=== PATIENT | female | born 1960 | race Caucasian/White ===

== ENCOUNTER 2020-08-16 13:36 | Inpatient (IN) | payer SELFPAY ==
[2020-08-16] MEDS ORDERED: Lactated Ringer's 1,000 ML IV SCH (15:30)
[2020-08-16] MEDS ORDERED: Bupivacaine 0.25% HCL 30 ML VIAL ONE (16:47)
[2020-08-16] MEDS ORDERED: Lidocaine 1% w/Epinephrine 1:100K 20 ML VIAL ONE (16:47)
[2020-08-16] MEDS ORDERED: Chlorhexidine Gluconate 15 ML UDCUP SSP ONE (16:47)
[2020-08-16 17:01] LABS: SARS-CoV-2 NAA Rapid Test Not Detected (NotDetected)
[2020-08-16] MEDS ORDERED: Fentanyl 100 MCG/2 ML VIAL ONE ×3 (17:42→19:56)
[2020-08-16] MEDS ORDERED: Midazolam HCl 2 mg/2 ml Vial ONE (17:42)
[2020-08-16] MEDS ORDERED: AFRIN NASAL MIST 15 ML BOT ONE (17:47)
[2020-08-16] MEDS ORDERED: PROPOFOL 200 MG/20 ML VIAL ONE (18:00)
[2020-08-16] MEDS ORDERED: Dexamethasone 20 MG/5 ML VIAL ONE (18:00)
[2020-08-16] MEDS ORDERED: Rocuronium Bromide 10 MG/ML (10ML VIAL) ONE (18:00)
[2020-08-16] MEDS ORDERED: Lidocaine 1% PF 5 ML VIAL ONE (18:00)
[2020-08-16] MEDS ORDERED: PHENYLEPHRINE-NS 100 MCG/ML 10 ML SYRINGE ONE (18:00)
[2020-08-16] MEDS ORDERED: Ondansetron PF 4 MG/2 ML Vial ONE (18:00)
[2020-08-16] MEDS ORDERED: Clindamycin/D5W 900 mg/50 ml Premix Bag ONE (18:21)
[2020-08-16] MEDS ORDERED: SUGAMMADEX SODIUM 200 MG/2 ML VIAL ONE (18:56)
[2020-08-16] MEDS ORDERED: Ondansetron HCl/PF 4 MG/2 ML Vial IVP PRN (19:29)
[2020-08-16] MEDS ORDERED: Promethazine HCl 25 MG/ML VIAL SLOW IVP PRN (19:29)
[2020-08-16] MEDS ORDERED: Promethazine HCl 25 MG/ML VIAL IM PRN (19:29)
[2020-08-16] MEDS ORDERED: Chlorhexidine Gluconate 15 ML UDCUP SSP SCH (22:15)
[2020-08-16] MEDS: Lactated Ringer's 1,000 ML IV SCH (22:39)
[2020-08-16 23:46] VITALS: BMI 28.2
[2020-08-17] MEDS: Clindamycin/D5W 600 MG in Premix Bag 1 BAG IVPB SCH ×2 (01:29→09:08)
[2020-08-17] MEDS: Lactated Ringer's 1,000 ML IV SCH ×2 (01:33→09:12)
[2020-08-17] MEDS ORDERED: HYDROcodone/Acetaminophen 5/325 mg Tablet PO PRN ×2 (04:07→04:16)
[2020-08-17] MEDS: HYDROcodone/Acetaminophen 5/325 mg Tablet PO PRN ×2 (04:37→18:10)
[2020-08-17] MEDS ORDERED: HYDROcodone/Acetaminophen 5/325 mg Tablet PO SCH (06:00)
[2020-08-17 06:19] LABS: Mean Corpuscular HGB CONC 32.6 g/dL (32.0-36.0); Mean Corpuscular Hemoglobin 30.7 pg (27.0-31.0); Platelet Count 215 thou/uL (130-400); RBC Distribution Width 12.2 % (11.5-14.5); Red Blood Cell (RBC) Count 4.58 mill/uL (4.20-5.40); White Blood Cell (WBC) Count 33.8 thou/uL (4.8-10.8)
[2020-08-17 06:23] LABS: ALT (SGPT) 35 U/L (8-55); AST (SGOT) 30 U/L (5-34); Albumin 3.1 g/dL (3.5-5.0); Alkaline Phosphatase 98 U/L (40-110); Anion Gap 16 mmol/L (10-20); BUN (Urea Nitrogen) 39 mg/dL (9.8-20.1); Bilirubin, Total 0.5 mg/dL (0.2-1.2); Calc. Creatinine Clearance 38 mL/min (70-130); Calcium 8.4 mg/dL (7.8-10.44); Carbon Dioxide 20 mmol/L (22-29); Chloride 106 mmol/L (98-107); Glucose 109 mg/dL (70-105); Potassium 4.4 mmol/L (3.5-5.1); Protein, Total 7.1 g/dL (6.0-8.3); Sodium 138 mmol/L (136-145)
[2020-08-17 06:43] LABS: Band 25 % (5-11); Lymphocytes 7 % (21-51); MDiff Complete? YES; Monocytes 8 % (0-10); Neutrophil 59 % (42-75)
[2020-08-17] MEDS ORDERED: Chlorhexidine Gluconate 15 ML UDCUP SSP SCH (09:00)
[2020-08-17 16:11] VITALS: BP 116/64; TEMP 98.2
== END 2020-08-17 18:24 | disposition home or self-care (01) | DRG 854 ==
LOC: ERS 13:36 → ERHOLD 14:54 → SJJU 21:53
PROVIDERS: ADMIT Family Medicine; ATTEND Family Medicine
PROC: 0J910ZZ Drainage of Face Subcutaneous Tissue and Fascia, Open Approach (ICD-10-PCS; principal; 2020-08-16)
PROC: 0CDXXZ0 Extraction of Lower Tooth, Single, External Approach (ICD-10-PCS; 2020-08-16)
DX: A41.9 Sepsis, unspecified organism (principal); K11.3 Abscess of salivary gland; N17.9 Acute kidney failure, unspecified; E86.0 Dehydration; R74.01 Elevation of levels of liver transaminase levels; K04.7 Periapical abscess without sinus; N18.9 Chronic kidney disease, unspecified; F17.210 Nicotine dependence, cigarettes, uncomplicated; D75.1 Secondary polycythemia; Z20.822 Contact with and (suspected) exposure to COVID-19; Z88.2 Allergy status to sulfonamides; Z88.1 Allergy status to other antibiotic agents
CPT/HCPCS: 36415; 80053; 84145; 85025; 87070; 87077; 87205; 99285; J1100; J2250; J2405; J2704; J3010; J3490; S0020; U0002

== ENCOUNTER 2020-08-22 12:38 | Inpatient (IN) | payer SELFPAY ==
[2020-08-22] MEDS ORDERED: Fentanyl 100 MCG/2 ML VIAL ONE ×3 (13:42→19:29)
[2020-08-22 13:53] LABS: Actual Bicarbonate (HCO3a) 16.4 mEq/L (22-28); Analyzer IN Cardio ER; Base Excess (BEa) -8.6 mEq/L (-2.0 to +3.0); CO2 Tension 32.9 mmHg (35.0-45.0); Carboxyhemoglobin (COHb) 1.2 gm% (0.0-3.0); O2 Tension (PaO2), arterial 61.5 mmHg (80.0-100.0); Potassium - ABG Lab 3.91 mmol/L (3.70-5.30); pH, Arterial 7.32 (7.35-7.45)
[2020-08-22 14:07] LABS: ALV-art Gradient 47.105 mmHg (0-20); Puncture Site LRA
[2020-08-22 14:56] LABS: SARS-CoV-2 NAA Rapid Test Not Detected (NotDetected)
[2020-08-22 15:12] LABS: INR-International Normal Ratio 1.2; PTT 27.1 sec (22.9-36.1); Prothrombin Time 15.3 sec (12.0-14.7)
[2020-08-22] MEDS ORDERED: Midazolam HCl 2 mg/2 ml Vial ONE (16:18)
[2020-08-22] MEDS ORDERED: Lidocaine 2% Jelly 5 ML TUBE ONE (16:18)
[2020-08-22] MEDS ORDERED: Fentanyl 250 MCG/5 ML VIAL ONE (16:18)
[2020-08-22] MEDS ORDERED: ePHEDrine Sulfate 50 MG/10 ML VIAL ONE (17:01)
[2020-08-22] MEDS ORDERED: Lidocaine 1% PF 5 ML VIAL ONE (17:01)
[2020-08-22] MEDS ORDERED: PROPOFOL 200 MG/20 ML VIAL ONE (17:01)
[2020-08-22] MEDS ORDERED: PHENYLEPHRINE-NS 100 MCG/ML 10 ML SYRINGE ONE (17:01)
[2020-08-22] MEDS ORDERED: Rocuronium Bromide 10 MG/ML (10ML VIAL) ONE (17:01)
[2020-08-22] MEDS ORDERED: Succinylcholine 200 MG/10 ml SYRINGE FS ONE (17:01)
[2020-08-22] MEDS ORDERED: Dextrose 5% in Water 1,000 ML IV PRN (17:16)
[2020-08-22] MEDS ORDERED: Dextrose 50% Abboject 50 ML SYRINGE SLOW IVP PRN (17:16)
[2020-08-22] MEDS ORDERED: Piperacillin/Tazobactam 3.375 GM VIAL ONE (17:18)
[2020-08-22] MEDS ORDERED: diphenhydrAMINE 25 MG CAP PO PRN (17:19)
[2020-08-22] MEDS ORDERED: Ondansetron PF 4 MG/2 ML Vial IVP PRN (17:19)
[2020-08-22] MEDS ORDERED: diphenhydrAMINE 50 MG/ML VIAL IM PRN (17:19)
[2020-08-22] MEDS ORDERED: Naloxone HCl 0.4 mg/ml Vial IV PRN (17:19)
[2020-08-22] MEDS ORDERED: diphenhydrAMINE 50 MG/ML VIAL IVP PRN (17:19)
[2020-08-22] MEDS ORDERED: Promethazine HCl 25 MG/ML VIAL IM PRN ×2 (17:19→19:27)
[2020-08-22] MEDS ORDERED: Sodium Chloride 0.9% 10 ML ONE (17:19)
[2020-08-22] MEDS ORDERED: Communication Order-Pharmacy FS SCH (17:30)
[2020-08-22] MEDS ORDERED: Phenylephrine 10 MG/ML VIAL ONE (17:40)
[2020-08-22] MEDS ORDERED: SUGAMMADEX SODIUM 500 MG/5 ML VIAL ONE (18:52)
[2020-08-22] MEDS ORDERED: Ondansetron HCl/PF 4 MG/2 ML Vial IVP PRN (19:27)
[2020-08-22] MEDS ORDERED: Promethazine HCl 25 MG/ML VIAL SLOW IVP PRN (19:27)
[2020-08-22 22:56] VITALS: BMI 26.5
[2020-08-22] MEDS: Piperacillin/Tazobactam 3.375 GM in Sodium Chloride 0.9% 100 ML IVPB SCH (23:07)
[2020-08-22] MEDS: Pantoprazole 40 MG VIAL IVP SCH (23:08)
[2020-08-22] MEDS: Sodium Chloride 0.9% 1,000 ML IV SCH (23:10)
[2020-08-23] MEDS: Sodium Chloride 0.9% 1,000 ML IV SCH (04:52)
[2020-08-23] MEDS: Piperacillin/Tazobactam 3.375 GM in Sodium Chloride 0.9% 100 ML IVPB SCH ×4 (04:52→23:57)
[2020-08-23 05:32] LABS: Hemoglobin 15.2 g/dL (12.0-16.0); Mean Corpuscular HGB CONC 32.6 g/dL (32.0-36.0); Mean Corpuscular Hemoglobin 30.9 pg (27.0-31.0); Mean Corpuscular Volume 94.8 fL (78.0-98.0); Mean Platelet Volume 7.3 fL (7.4-10.4); Platelet Count 271 thou/uL (130-400); RBC Distribution Width 12.4 % (11.5-14.5); White Blood Cell (WBC) Count 50.3 thou/uL (4.8-10.8)
[2020-08-23 05:45] LABS: Band 23 % (5-11); Lymphocytes 3 % (21-51); MDiff Complete? YES; Monocytes 3 % (0-10); Neutrophil 71 % (42-75); Platelet Morphology Comment Appears Adequate; RBC Morphology Normal
[2020-08-23 05:53] LABS: Anion Gap 17 mmol/L (10-20); BUN (Urea Nitrogen) 38 mg/dL (9.8-20.1); Calc. Creatinine Clearance 25 mL/min (70-130); Calcium 7.9 mg/dL (7.8-10.44); Carbon Dioxide 16 mmol/L (22-29); Chloride 110 mmol/L (98-107); Glucose 91 mg/dL (70-105); Potassium 4.6 mmol/L (3.5-5.1); Sodium 138 mmol/L (136-145)
[2020-08-23] MEDS ORDERED: Sodium Chloride 0.9% 500 ML IV SCH (06:00)
[2020-08-23] MEDS ORDERED: Sodium Bicarbonate 150 MEQ in Dextrose 5% in Water 1,000 ML IV SCH ×2 (08:00→10:45)
[2020-08-23] MEDS: Pantoprazole 40 MG VIAL IVP SCH ×2 (08:40→19:55)
[2020-08-23] MEDS ORDERED: Enoxaparin Sodium 40 MG/0.4 ML SYRINGE SC SCH (09:00)
[2020-08-23] MEDS ORDERED: Chloraseptic Spray 180 ml Bottle PO PRN (09:01)
[2020-08-23] MEDS ORDERED: Sodium Chloride 0.9% 1,000 ML IV SCH (09:15)
[2020-08-23] MEDS ORDERED: Chlorhexidine Gluconate 15 ML UDCUP SSP PRN (17:21)
[2020-08-23] MEDS: HYDROmorphone 10 mg/100 ml CADD IVPB PRN (21:01)
[2020-08-24 05:44] LABS: Hemoglobin 11.3 g/dL (12.0-16.0); Lymphocytes 5 % (21-51); MDiff Complete? YES; Mean Corpuscular HGB CONC 32.6 g/dL (32.0-36.0); Mean Corpuscular Hemoglobin 30.6 pg (27.0-31.0); Mean Corpuscular Volume 93.7 fL (78.0-98.0); Mean Platelet Volume 7.8 fL (7.4-10.4); Monocytes 9 % (0-10); Neutrophil 86 % (42-75); Platelet Count 217 thou/uL (130-400); Platelet Morphology Comment Appears Adequate; RBC Distribution Width 12.3 % (11.5-14.5); Red Blood Cell (RBC) Count 3.69 mill/uL (4.20-5.40); White Blood Cell (WBC) Count 35.6 thou/uL (4.8-10.8)
[2020-08-24 05:53] LABS: ALT (SGPT) 62 U/L (8-55); AST (SGOT) 93 U/L (5-34); Albumin 2.2 g/dL (3.5-5.0); Alkaline Phosphatase 59 U/L (40-110); Anion Gap 12 mmol/L (10-20); BUN (Urea Nitrogen) 41 mg/dL (9.8-20.1); Bilirubin, Total 0.8 mg/dL (0.2-1.2); Calc. Creatinine Clearance 28 mL/min (70-130); Calcium 7.9 mg/dL (7.8-10.44); Carbon Dioxide 22 mmol/L (22-29); Chloride 109 mmol/L (98-107); Globulin 3.3 g/dL (2.4-3.5); Glucose 89 mg/dL (70-105); Potassium 4.6 mmol/L (3.5-5.1); Protein, Total 5.5 g/dL (6.0-8.3); Sodium 138 mmol/L (136-145)
[2020-08-24] MEDS: Piperacillin/Tazobactam 3.375 GM in Sodium Chloride 0.9% 100 ML IVPB SCH ×3 (06:09→18:31)
[2020-08-24] MEDS: Enoxaparin Sodium 30 MG/0.3 ML SYRINGE SC SCH (09:22)
[2020-08-24] MEDS: Pantoprazole 40 MG VIAL IVP SCH ×2 (09:22→20:39)
[2020-08-24] MEDS: Sodium Bicarbonate 150 MEQ in Dextrose 5% in Water 850 ML IV SCH ×2 (09:24→20:41)
[2020-08-24 18:37] LABS: H. pylori IgA ABS Less than 9.0 units (0.0-8.9); H. pylori IgG ABS 0.61 (0.00-0.79); H. pylori IgM ABS Less than 9.0 units (0.0-8.9)
[2020-08-25] MEDS: Piperacillin/Tazobactam 3.375 GM in Sodium Chloride 0.9% 100 ML IVPB SCH ×4 (00:08→17:51)
[2020-08-25] MEDS: HYDROmorphone 10 mg/100 ml CADD IVPB PRN (00:11)
[2020-08-25 06:01] LABS: #Basophils 0.1 thou/uL (0.0-0.2); #Eosinphils 0.2 thou/uL (0.0-0.7); #Lymphocytes 3.1 thou/uL (1.20-3.40); #Monocytes 1.5 thou/uL (0.11-0.59); #Neutrophils 17.5 thou/uL (1.40-6.50); %Basophils 0.4 % (0.0-1.0); %Lymphocytes 13.9 % (21.0-51.0); %Monocytes 6.9 % (0.0-10.0); %Neutrophils 77.9 % (42.0-75.0); Hemoglobin 12.5 g/dL (12.0-16.0); Mean Corpuscular HGB CONC 31.6 g/dL (32.0-36.0); Mean Corpuscular Hemoglobin 29.7 pg (27.0-31.0); Mean Corpuscular Volume 94.1 fL (78.0-98.0); Mean Platelet Volume 7.6 fL (7.4-10.4); Platelet Count 177 thou/uL (130-400); RBC Distribution Width 12.1 % (11.5-14.5); Red Blood Cell (RBC) Count 4.19 mill/uL (4.20-5.40); White Blood Cell (WBC) Count 22.5 thou/uL (4.8-10.8)
[2020-08-25] MEDS: Sodium Bicarbonate 150 MEQ in Dextrose 5% in Water 850 ML IV SCH (06:15)
[2020-08-25 06:23] LABS: Anion Gap 14 mmol/L (10-20); BUN (Urea Nitrogen) 31 mg/dL (9.8-20.1); Calc. Creatinine Clearance 42 mL/min (70-130); Calcium 7.9 mg/dL (7.8-10.44); Carbon Dioxide 28 mmol/L (22-29); Chloride 102 mmol/L (98-107); Glucose 78 mg/dL (70-105); Magnesium 1.9 mg/dL (1.6-2.6); Phosphorus 2.9 mg/dL (2.3-4.7); Potassium 3.5 mmol/L (3.5-5.1); Sodium 140 mmol/L (136-145)
[2020-08-25] MEDS: Pantoprazole 40 MG VIAL IVP SCH ×2 (08:46→20:36)
[2020-08-25] MEDS: Enoxaparin Sodium 30 MG/0.3 ML SYRINGE SC SCH (08:46)
[2020-08-25] MEDS: Enoxaparin Sodium 40 MG/0.4 ML SYRINGE SC SCH (09:02)
[2020-08-25] MEDS: Hydrocodone-Acetamin 15 ML UDCUP PO PRN (17:53)
[2020-08-25] MEDS ORDERED: Magnesium 2 GM/50 ML 2 GM in Premix Bag 1 BAG IVPB SCH (19:30)
[2020-08-25] MEDS: Lactated Ringer's 1,000 ML IV SCH (22:20)
[2020-08-26] MEDS: Hydrocodone-Acetamin 15 ML UDCUP PO PRN ×4 (00:25→17:14)
[2020-08-26] MEDS: Piperacillin/Tazobactam 3.375 GM in Sodium Chloride 0.9% 100 ML IVPB SCH ×4 (00:47→17:11)
[2020-08-26 04:58] LABS: #Eosinphils 0.3 thou/uL (0.0-0.7); #Lymphocytes 2.7 thou/uL (1.20-3.40); #Monocytes 1.5 thou/uL (0.11-0.59); #Neutrophils 11.6 thou/uL (1.40-6.50); %Basophils 0.3 % (0.0-1.0); %Eosinophils 2.1 % (0.0-10.0); %Lymphocytes 16.7 % (21.0-51.0); %Monocytes 9.3 % (0.0-10.0); %Neutrophils 71.7 % (42.0-75.0); Hemoglobin 11.3 g/dL (12.0-16.0); Mean Corpuscular HGB CONC 31.7 g/dL (32.0-36.0); Mean Corpuscular Hemoglobin 29.7 pg (27.0-31.0); Mean Corpuscular Volume 93.8 fL (78.0-98.0); Mean Platelet Volume 7.1 fL (7.4-10.4); Platelet Count 234 thou/uL (130-400); RBC Distribution Width 11.9 % (11.5-14.5); Red Blood Cell (RBC) Count 3.79 mill/uL (4.20-5.40); White Blood Cell (WBC) Count 16.2 thou/uL (4.8-10.8)
[2020-08-26 05:21] LABS: Anion Gap 9 mmol/L (10-20); BUN (Urea Nitrogen) 24 mg/dL (9.8-20.1); Calc. Creatinine Clearance 49 mL/min (70-130); Calcium 8.1 mg/dL (7.8-10.44); Carbon Dioxide 34 mmol/L (22-29); Chloride 100 mmol/L (98-107); Glucose 99 mg/dL (70-105); Magnesium 2.3 mg/dL (1.6-2.6); Phosphorus 2.9 mg/dL (2.3-4.7); Potassium 3.6 mmol/L (3.5-5.1); Sodium 139 mmol/L (136-145)
[2020-08-26] MEDS: Lactated Ringer's 1,000 ML IV SCH (05:34)
[2020-08-26] MEDS ORDERED: Furosemide 20 MG/2 ML VIAL SLOW IVP SCH (08:45)
[2020-08-26] MEDS: Enoxaparin Sodium 40 MG/0.4 ML SYRINGE SC SCH (09:53)
[2020-08-26] MEDS: Pantoprazole 40 MG VIAL IVP SCH ×2 (09:54→21:31)
[2020-08-27] MEDS: Piperacillin/Tazobactam 3.375 GM in Sodium Chloride 0.9% 100 ML IVPB SCH ×5 (00:10→23:52)
[2020-08-27] MEDS: Hydrocodone-Acetamin 15 ML UDCUP PO PRN ×4 (01:21→20:06)
[2020-08-27 05:28] LABS: #Eosinphils 0.3 thou/uL (0.0-0.7); #Lymphocytes 2.3 thou/uL (1.20-3.40); #Monocytes 1.8 thou/uL (0.11-0.59); #Neutrophils 11.5 thou/uL (1.40-6.50); %Basophils 0.1 % (0.0-1.0); %Eosinophils 1.7 % (0.0-10.0); %Lymphocytes 14.8 % (21.0-51.0); %Monocytes 11.3 % (0.0-10.0); %Neutrophils 72.1 % (42.0-75.0); Hemoglobin 11.7 g/dL (12.0-16.0); Mean Corpuscular HGB CONC 32.3 g/dL (32.0-36.0); Mean Corpuscular Hemoglobin 30.3 pg (27.0-31.0); Mean Corpuscular Volume 93.7 fL (78.0-98.0); Mean Platelet Volume 7.1 fL (7.4-10.4); Platelet Count 233 thou/uL (130-400); RBC Distribution Width 11.9 % (11.5-14.5); Red Blood Cell (RBC) Count 3.85 mill/uL (4.20-5.40); White Blood Cell (WBC) Count 15.9 thou/uL (4.8-10.8)
[2020-08-27 05:44] LABS: Anion Gap 10 mmol/L (10-20); BUN (Urea Nitrogen) 18 mg/dL (9.8-20.1); Calc. Creatinine Clearance 55 mL/min (70-130); Calcium 8.2 mg/dL (7.8-10.44); Carbon Dioxide 32 mmol/L (22-29); Chloride 102 mmol/L (98-107); Glucose 103 mg/dL (70-105); Potassium 3.6 mmol/L (3.5-5.1); Sodium 140 mmol/L (136-145)
[2020-08-27] MEDS: Enoxaparin Sodium 40 MG/0.4 ML SYRINGE SC SCH (08:05)
[2020-08-27] MEDS: Pantoprazole 40 MG VIAL IVP SCH ×2 (08:06→20:05)
[2020-08-28] MEDS: Hydrocodone-Acetamin 15 ML UDCUP PO PRN ×3 (04:21→12:41)
[2020-08-28 05:39] LABS: #Basophils 0.1 thou/uL (0.0-0.2); #Eosinphils 0.3 thou/uL (0.0-0.7); #Monocytes 1.6 thou/uL (0.11-0.59); #Neutrophils 9.2 thou/uL (1.40-6.50); %Basophils 0.4 % (0.0-1.0); %Eosinophils 1.9 % (0.0-10.0); %Lymphocytes 15.2 % (21.0-51.0); %Monocytes 12.3 % (0.0-10.0); %Neutrophils 70.2 % (42.0-75.0); Hemoglobin 10.7 g/dL (12.0-16.0); Mean Corpuscular HGB CONC 32.9 g/dL (32.0-36.0); Mean Corpuscular Hemoglobin 30.9 pg (27.0-31.0); Mean Corpuscular Volume 93.8 fL (78.0-98.0); Mean Platelet Volume 7.2 fL (7.4-10.4); Platelet Count 242 thou/uL (130-400); RBC Distribution Width 11.9 % (11.5-14.5); Red Blood Cell (RBC) Count 3.48 mill/uL (4.20-5.40); White Blood Cell (WBC) Count 13.2 thou/uL (4.8-10.8)
[2020-08-28 06:00] LABS: Anion Gap 10 mmol/L (10-20); BUN (Urea Nitrogen) 15 mg/dL (9.8-20.1); Calc. Creatinine Clearance 62 mL/min (70-130); Calcium 7.9 mg/dL (7.8-10.44); Carbon Dioxide 27 mmol/L (22-29); Chloride 104 mmol/L (98-107); Glucose 94 mg/dL (70-105); Magnesium 1.6 mg/dL (1.6-2.6); Phosphorus 2.7 mg/dL (2.3-4.7); Potassium 3.6 mmol/L (3.5-5.1); Sodium 137 mmol/L (136-145)
[2020-08-28] MEDS: Piperacillin/Tazobactam 3.375 GM in Sodium Chloride 0.9% 100 ML IVPB SCH (06:11)
[2020-08-28] MEDS ORDERED: Magnesium 2 GM/50 ML 2 GM in Premix Bag 1 BAG IVPB SCH (08:00)
[2020-08-28] MEDS: Enoxaparin Sodium 40 MG/0.4 ML SYRINGE SC SCH (08:54)
[2020-08-28] MEDS: Pantoprazole 40 MG VIAL IVP SCH ×2 (08:54→21:04)
[2020-08-28] MEDS: Furosemide 20 MG/2 ML VIAL SLOW IVP SCH ×5 (10:48→21:04)
[2020-08-28] MEDS ORDERED: Fentanyl 250 MCG/5 ML VIAL ONE (15:40)
[2020-08-28] MEDS ORDERED: Lidocaine 1% PF 5 ML VIAL ONE (16:11)
[2020-08-28] MEDS ORDERED: Dexamethasone 20 MG/5 ML VIAL ONE (16:11)
[2020-08-28] MEDS ORDERED: Ondansetron PF 4 MG/2 ML Vial ONE (16:11)
[2020-08-28] MEDS ORDERED: Rocuronium Bromide 10 MG/ML (10ML VIAL) ONE (16:11)
[2020-08-28] MEDS ORDERED: ePHEDrine Sulfate 50 MG/10 ML VIAL ONE (16:11)
[2020-08-28] MEDS ORDERED: PHENYLEPHRINE-NS 100 MCG/ML 10 ML SYRINGE ONE (16:11)
[2020-08-28] MEDS ORDERED: PROPOFOL 200 MG/20 ML VIAL ONE (16:11)
[2020-08-28] MEDS ORDERED: Lidocaine 1% w/Epinephrine 1:100K 20 ML VIAL ONE (16:30)
[2020-08-28] MEDS ORDERED: Bupivacaine 0.25% HCL 30 ML VIAL ONE (16:30)
[2020-08-28] MEDS ORDERED: Bupivacaine PF 0.5% 30 ML VIAL ONE (16:30)
[2020-08-28] MEDS ORDERED: SUGAMMADEX SODIUM 500 MG/5 ML VIAL ONE (16:49)
[2020-08-28] MEDS ORDERED: Promethazine HCl 25 MG/ML VIAL SLOW IVP PRN (17:22)
[2020-08-28] MEDS ORDERED: Promethazine HCl 25 MG/ML VIAL IM PRN (17:22)
[2020-08-28] MEDS ORDERED: Ondansetron HCl/PF 4 MG/2 ML Vial IVP PRN (17:22)
[2020-08-28] MEDS ORDERED: traMADol HCl 50 MG TAB PO SCH (23:15)
[2020-08-29 07:32] LABS: Band 4 % (5-11); Eosinophils 3 % (0-10); Lymphocytes 21 % (21-51); Monocytes 7 % (0-10); Reactive Lymphocytes 1 % (0-10)
[2020-08-29 07:33] LABS: Neutrophil 63 % (42-75); Platelet Morphology Comment Appears Adequate; Polychromasia SLIGHT = 2-3 cells (100X) (0-2/hpf)
[2020-08-29] MEDS: Gabapentin 300 MG CAP PO SCH ×3 (08:32→20:29)
[2020-08-29] MEDS: Enoxaparin Sodium 40 MG/0.4 ML SYRINGE SC SCH (08:32)
[2020-08-29] MEDS: Pantoprazole 40 MG VIAL IVP SCH ×2 (08:32→20:31)
[2020-08-29] MEDS: Cyclobenzaprine 10 MG TAB PO PRN (17:40)
[2020-08-30] MEDS: Cyclobenzaprine 10 MG TAB PO PRN (01:36)
[2020-08-30] MEDS: Enoxaparin Sodium 40 MG/0.4 ML SYRINGE SC SCH (09:00)
[2020-08-30] MEDS: Gabapentin 300 MG CAP PO SCH ×3 (09:01→22:26)
[2020-08-30] MEDS: Pantoprazole 40 MG VIAL IVP SCH ×2 (09:01→22:26)
[2020-08-30] MEDS ORDERED: Fentanyl 100 MCG/2 ML VIAL ONE ×4 (12:33→20:14)
[2020-08-30] MEDS ORDERED: PHENYLEPHRINE-NS 100 MCG/ML 10 ML SYRINGE ONE ×2 (15:03→18:47)
[2020-08-30] MEDS ORDERED: Phenylephrine 10 MG/ML VIAL ONE (15:03)
[2020-08-30] MEDS ORDERED: CEFAZOLIN 2 GM in Premix Bag 1 BAG IVPB SCH (17:15)
[2020-08-30] MEDS ORDERED: Rocuronium Bromide 10 MG/ML (10ML VIAL) ONE (18:47)
[2020-08-30] MEDS ORDERED: Dexamethasone 20 MG/5 ML VIAL ONE (18:47)
[2020-08-30] MEDS ORDERED: PROPOFOL 200 MG/20 ML VIAL ONE (18:47)
[2020-08-30] MEDS ORDERED: ePHEDrine Sulfate 50 MG/10 ML VIAL ONE (18:47)
[2020-08-30] MEDS ORDERED: Ondansetron PF 4 MG/2 ML Vial ONE (18:47)
[2020-08-30] MEDS ORDERED: Lidocaine 1% w/Epinephrine 1:100K 20 ML VIAL ONE (18:49)
[2020-08-30] MEDS ORDERED: Bupivacaine 0.25% HCL 30 ML VIAL ONE (18:49)
[2020-08-30] MEDS ORDERED: SUGAMMADEX SODIUM 500 MG/5 ML VIAL ONE (19:47)
[2020-08-30] MEDS ORDERED: Naloxone HCl 0.4 mg/ml Vial IV PRN (20:04)
[2020-08-30] MEDS ORDERED: HYDROmorphone 10 mg/100 ml CADD IVPB PRN (20:04)
[2020-08-30] MEDS ORDERED: Communication Order-Pharmacy FS SCH (20:15)
[2020-08-30] MEDS ORDERED: Promethazine HCl 25 MG/ML VIAL SLOW IVP PRN (20:17)
[2020-08-30] MEDS ORDERED: Promethazine HCl 25 MG/ML VIAL IM PRN (20:17)
[2020-08-30] MEDS ORDERED: Ondansetron HCl/PF 4 MG/2 ML Vial IVP PRN (20:17)
[2020-08-30] MEDS ORDERED: HYDROmorphone 2 MG/ML VIAL SLOW IVP PRN (20:17)
[2020-08-30] MEDS ORDERED: Morphine Sulfate 2 MG/ML SYRINGE SLOW IVP PRN (20:17)
[2020-08-30] MEDS ORDERED: HYDROmorphone 2 MG/ML VIAL ONE (20:35)
[2020-08-31 05:19] LABS: #Basophils 0.1 thou/uL (0.0-0.2); #Lymphocytes 1.4 thou/uL (1.20-3.40); #Monocytes 0.7 thou/uL (0.11-0.59); #Neutrophils 10.2 thou/uL (1.40-6.50); %Basophils 0.4 % (0.0-1.0); %Eosinophils 0.1 % (0.0-10.0); %Monocytes 5.3 % (0.0-10.0); %Neutrophils 83.1 % (42.0-75.0); Hemoglobin 11.4 g/dL (12.0-16.0); Mean Corpuscular Hemoglobin 31.1 pg (27.0-31.0); Mean Corpuscular Volume 97.2 fL (78.0-98.0); Mean Platelet Volume 7.1 fL (7.4-10.4); Platelet Count 312 thou/uL (130-400); RBC Distribution Width 12.4 % (11.5-14.5); Red Blood Cell (RBC) Count 3.65 mill/uL (4.20-5.40); White Blood Cell (WBC) Count 12.3 thou/uL (4.8-10.8)
[2020-08-31 05:44] LABS: Anion Gap 12 mmol/L (10-20); BUN (Urea Nitrogen) 16 mg/dL (9.8-20.1); Calc. Creatinine Clearance 72 mL/min (70-130); Calcium 7.9 mg/dL (7.8-10.44); Carbon Dioxide 27 mmol/L (22-29); Chloride 103 mmol/L (98-107); Glucose 132 mg/dL (70-105); Magnesium 1.6 mg/dL (1.6-2.6); Phosphorus 3.3 mg/dL (2.3-4.7); Potassium 4.7 mmol/L (3.5-5.1); Sodium 137 mmol/L (136-145)
[2020-08-31] MEDS ORDERED: traMADol HCl 50 MG TAB PO PRN (08:00)
[2020-08-31] MEDS: Enoxaparin Sodium 40 MG/0.4 ML SYRINGE SC SCH (09:07)
[2020-08-31] MEDS: Pantoprazole 40 MG VIAL IVP SCH ×2 (09:08→20:30)
[2020-08-31] MEDS: Gabapentin 300 MG CAP PO SCH ×3 (09:08→20:29)
[2020-08-31] MEDS: traMADol HCl 50 MG TAB PO SCH ×3 (09:31→20:29)
[2020-08-31] MEDS: Acetaminophen 325 MG TAB PO SCH ×3 (09:31→20:28)
[2020-09-01] MEDS: traMADol HCl 50 MG TAB PO SCH ×4 (01:02→17:26)
[2020-09-01] MEDS: Acetaminophen 325 MG TAB PO SCH ×4 (01:02→19:26)
[2020-09-01] MEDS: Enoxaparin Sodium 40 MG/0.4 ML SYRINGE SC SCH (08:16)
[2020-09-01] MEDS: Gabapentin 300 MG CAP PO SCH ×3 (08:16→19:27)
[2020-09-01] MEDS: Pantoprazole 40 MG VIAL IVP SCH (08:17)
[2020-09-02] MEDS: traMADol HCl 50 MG TAB PO SCH ×4 (01:00→18:53)
[2020-09-02] MEDS: Acetaminophen 325 MG TAB PO SCH ×4 (01:01→20:42)
[2020-09-02] MEDS: Enoxaparin Sodium 40 MG/0.4 ML SYRINGE SC SCH (09:36)
[2020-09-02] MEDS: Gabapentin 300 MG CAP PO SCH ×3 (09:37→20:42)
[2020-09-03] MEDS: traMADol HCl 50 MG TAB PO SCH ×4 (01:04→18:43)
[2020-09-03] MEDS: Acetaminophen 325 MG TAB PO SCH ×4 (01:04→19:54)
[2020-09-03 05:55] LABS: Hemoglobin 9.6 g/dL (12.0-16.0); Mean Corpuscular HGB CONC 32.1 g/dL (32.0-36.0); Mean Corpuscular Hemoglobin 30.7 pg (27.0-31.0); Mean Corpuscular Volume 95.9 fL (78.0-98.0); Platelet Count 277 thou/uL (130-400); RBC Distribution Width 12.2 % (11.5-14.5); Red Blood Cell (RBC) Count 3.12 mill/uL (4.20-5.40); White Blood Cell (WBC) Count 13.6 thou/uL (4.8-10.8)
[2020-09-03 06:06] LABS: Anion Gap 10 mmol/L (10-20); BUN (Urea Nitrogen) 16 mg/dL (9.8-20.1); Calc. Creatinine Clearance 68 mL/min (70-130); Calcium 7.6 mg/dL (7.8-10.44); Carbon Dioxide 27 mmol/L (22-29); Chloride 105 mmol/L (98-107); Glucose 98 mg/dL (70-105); Magnesium 1.5 mg/dL (1.6-2.6); Phosphorus 2.6 mg/dL (2.3-4.7); Potassium 4.5 mmol/L (3.5-5.1); Sodium 137 mmol/L (136-145)
[2020-09-03 06:16] LABS: Band 3 % (5-11); Hypochromia SLIGHT = 6-15 cells (100X) (0-5/hpf); Lymphocytes 10 % (21-51); MDiff Complete? YES; Monocytes 9 % (0-10); Neutrophil 74 % (42-75); Platelet Morphology Comment Appears Adequate; Reactive Lymphocytes 4 % (0-10)
[2020-09-03] MEDS: Gabapentin 300 MG CAP PO SCH ×3 (08:14→19:54)
[2020-09-03] MEDS: Enoxaparin Sodium 40 MG/0.4 ML SYRINGE SC SCH (08:15)
[2020-09-03] MEDS ORDERED: Furosemide 20 MG/2 ML VIAL SLOW IVP SCH (10:45)
[2020-09-03] MEDS ORDERED: Sodium Phosphate 30 MMOL, Magnesium Sulfate 4 GM in Sodium Chloride 0.9% 250 ML 250 ML IVPB SCH (11:00)
[2020-09-04] MEDS: Acetaminophen 325 MG TAB PO SCH ×2 (00:37→08:09)
[2020-09-04] MEDS: traMADol HCl 50 MG TAB PO SCH ×3 (00:38→11:34)
[2020-09-04 05:41] LABS: Eosinophils 2 % (0-10); Hemoglobin 10.8 g/dL (12.0-16.0); Lymphocytes 16 % (21-51); MDiff Complete? YES; Mean Corpuscular HGB CONC 31.8 g/dL (32.0-36.0); Mean Corpuscular Hemoglobin 30.3 pg (27.0-31.0); Mean Corpuscular Volume 95.5 fL (78.0-98.0); Metamyelocyte 1 % (0-0); Monocytes 2 % (0-10); Neutrophil 79 % (42-75); Platelet Count 333 thou/uL (130-400); Platelet Morphology Comment Appears Adequate; RBC Distribution Width 12.1 % (11.5-14.5); Red Blood Cell (RBC) Count 3.56 mill/uL (4.20-5.40); White Blood Cell (WBC) Count 14.5 thou/uL (4.8-10.8)
[2020-09-04 05:45] LABS: Anion Gap 10 mmol/L (10-20); BUN (Urea Nitrogen) 15 mg/dL (9.8-20.1); Calc. Creatinine Clearance 77 mL/min (70-130); Calcium 8.1 mg/dL (7.8-10.44); Carbon Dioxide 32 mmol/L (22-29); Chloride 101 mmol/L (98-107); Glucose 78 mg/dL (70-105); Phosphorus 3.1 mg/dL (2.3-4.7); Potassium 4.2 mmol/L (3.5-5.1); Sodium 139 mmol/L (136-145)
[2020-09-04] MEDS: Bupropion 150 MG SR TAB PO SCH ×2 (08:08→08:12)
[2020-09-04] MEDS: Gabapentin 300 MG CAP PO SCH (08:08)
[2020-09-04] MEDS: Enoxaparin Sodium 40 MG/0.4 ML SYRINGE SC SCH (08:08)
[2020-09-04 12:11] VITALS: BP 162/79; TEMP 98.4
== END 2020-09-04 13:00 | disposition home or self-care (01) | DRG 853 ==
LOC: ERS 12:38 → SDC 15:43 → SJJU 17:16
PROVIDERS: ADMIT Surgery; ATTEND Surgery
PROC: 0DU907Z Supplement Duodenum with Autologous Tissue Substitute, Open Approach (ICD-10-PCS; principal; 2020-08-22)
PROC: 0WP Anatomical Regions, General, Removal (ICD-10-PCS; 2020-08-28)
PROC: 0JQ80ZZ Repair Abdomen Subcutaneous Tissue and Fascia, Open Approach (ICD-10-PCS; 2020-08-30)
DX: A41.9 Sepsis, unspecified organism (principal); K26.1 Acute duodenal ulcer with perforation; K65.9 Peritonitis, unspecified; R65.21 Severe sepsis with septic shock; E87.2 Acidosis; N17.9 Acute kidney failure, unspecified; T81.30XA Disruption of wound, unspecified, initial encounter; Z20.822 Contact with and (suspected) exposure to COVID-19; M54.5 Low back pain; G89.29 Other chronic pain; I73.9 Peripheral vascular disease, unspecified; Y83.8 Other surgical procedures as the cause of abnormal reaction of the patient, or of later complication, without mention of misadventure at the time of the procedure; E83.42 Hypomagnesemia; Z88.2 Allergy status to sulfonamides; Z88.1 Allergy status to other antibiotic agents
CPT/HCPCS: 36415; 36600; 71045; 74018; 74240; 80048; 80053; 82533; 82805; 83605; 83735; 83880; 84100; 85007; 85025; 85027; 85060; 85610; 85730; 86850; 86900; 86901; 94640; 96374; C9113; J0690; J1100; J1170; J1650; J1940; J2250; J2370; J2405; J2543; J2704; J3010; J3475; J3490; J7050; J7070; J7620; S0020; U0002

== ENCOUNTER 2023-11-12 17:22 | Inpatient (IN) | payer OTHER ==
[~2023-11-12 17:22] MED LIST: Iopamidol-370 76% 500 ML MDV (1 ML CHARGE) ONE
[2023-11-12 17:35] LABS: #Basophils 0.04 10x3/uL (0.0-0.2); %Basophils 0.6 % (0.0-1.0); %Eosinophils 2.3 % (0.0-10.0); %Lymphocytes 32.9 % (21.0-51.0); %Monocytes 9.8 % (0.0-10.0); %Neutrophils 54.1 % (42.0-75.0); Hematocrit 44.7 % (36.0-47.0); Hemoglobin 15.3 g/dL (12.0-16.0); Mean Corpuscular HGB CONC 34.2 g/dL (32.0-36.0); Mean Corpuscular Hemoglobin 30.5 pg (27.0-31.0); Mean Corpuscular Volume 89.2 fL (78.0-98.0); Mean Platelet Volume 9.3 fL (7.4-10.4); Platelet Count 184 10x3/uL (130-400); RBC Distribution Width 11.9 % (11.5-14.5); Red Blood Cell (RBC) Count 5.01 mill/uL (4.20-5.40)
[2023-11-12 17:51] LABS: Prothrombin Time 13.5 sec (12.0-14.7)
[2023-11-12 17:52] LABS: PTT 30.4 sec (22.9-36.1)
[2023-11-12 17:54] LABS: ALT (SGPT) 22 U/L (8-55); AST (SGOT) 29 U/L (5-34); Albumin 3.6 g/dL (3.4-4.8); Alkaline Phosphatase 76 U/L (40-110); Anion Gap 12 mmol/L (10-20); BUN (Urea Nitrogen) 18 mg/dL (9.8-20.1); Bilirubin, Total 0.8 mg/dL (0.2-1.2); CK (CPK) 42 U/L (29-168); Calc. Creatinine Clearance 0 mL/min (70-130); Calcium 9.5 mg/dL (7.8-10.44); Carbon Dioxide 26 mmol/L (23-31); Chloride 106 mmol/L (98-107); Estimated GFR 53; Globulin 3.4 g/dL (2.4-3.5); Glucose 128 mg/dL (80-115); Sodium 140 mmol/L (136-145)
[2023-11-12] MEDS ORDERED: Aspirin Chewable 81 MG TAB ONE (18:25)
[2023-11-12] MEDS ORDERED: Ondansetron ODT 4 MG TAB PO PRN (20:25)
[2023-11-12] MEDS ORDERED: Ondansetron PF 4 MG/2 ML Vial IVP PRN (20:25)
[2023-11-12] MEDS ORDERED: Acetaminophen 650 MG Suppository PR PRN (20:25)
[2023-11-13] MEDS: Acetaminophen 325 MG TAB PO PRN (03:25)
[2023-11-13] MEDS ORDERED: hydrALAZINE 20 MG/ML VIAL SLOW IVP PRN (03:58)
[2023-11-13 04:39] LABS: #Basophils 0.04 10x3/uL (0.0-0.2); %Basophils 0.5 % (0.0-1.0); %Lymphocytes 36.8 % (21.0-51.0); %Monocytes 11.3 % (0.0-10.0); %Neutrophils 47.1 % (42.0-75.0); Mean Corpuscular HGB CONC 34.1 g/dL (32.0-36.0); Mean Corpuscular Hemoglobin 30.5 pg (27.0-31.0); Mean Corpuscular Volume 89.4 fL (78.0-98.0); Mean Platelet Volume 9.8 fL (7.4-10.4); Platelet Count 186 10x3/uL (130-400); RBC Distribution Width 12.1 % (11.5-14.5); Red Blood Cell (RBC) Count 4.92 mill/uL (4.20-5.40)
[2023-11-13] MEDS: Nicotine 14 MG PATCH TD SCH (04:41)
[2023-11-13 05:02] LABS: Anion Gap 11 mmol/L (10-20); BUN (Urea Nitrogen) 15 mg/dL (9.8-20.1); Calc. Creatinine Clearance 60 mL/min (70-130); Carbon Dioxide 23 mmol/L (23-31); Chloride 108 mmol/L (98-107); Estimated GFR 70; Glucose 84 mg/dL (80-115); Potassium 3.8 mmol/L (3.5-5.1); Sodium 138 mmol/L (136-145)
[2023-11-13] MEDS: Aspirin 81 mg Enteric Coated Tablet PO SCH (08:52)
[2023-11-13] MEDS: Enoxaparin 40 MG (0.4 mL) SYRINGE SC SCH (08:52)
[2023-11-13] MEDS: Lorazepam 2 MG/ML VIAL SLOW IVP PRN (09:53)
[2023-11-13 11:04] LABS: Influenza A by NAA Not Detected (NotDetected); Influenza B by NAA Not Detected (NotDetected); SARS-CoV-2 NAA Rapid Test Not Detected (NotDetected)
[2023-11-13] MEDS: Atorvastatin Calcium 40 MG TAB PO SCH (20:04)
[2023-11-13] MEDS: Guaifenesin DM 100-10/5 ML UDCUP PO PRN (20:04)
[2023-11-13] MEDS: Loratadine 10 MG TAB PO SCH (20:04)
[2023-11-13] MEDS: Cyclobenzaprine 10 MG TAB PO SCH (21:41)
[2023-11-14] MEDS: Clopidogrel Bisulfate 75 MG TAB PO SCH (09:20)
[2023-11-14] MEDS ORDERED: Albuterol 2.5 MG (3 mL) NEB NEB PRN (11:06)
[2023-11-15] MEDS: Pantoprazole DR 40 MG TAB PO SCH (08:31)
[2023-11-17 05:09] LABS: #Basophils 0.05 10x3/uL (0.0-0.2); %Basophils 0.6 % (0.0-1.0); %Eosinophils 5.3 % (0.0-10.0); %Lymphocytes 29.3 % (21.0-51.0); %Monocytes 12.8 % (0.0-10.0); %Neutrophils 51.8 % (42.0-75.0); Hematocrit 41.3 % (36.0-47.0); Hemoglobin 13.9 g/dL (12.0-16.0); Mean Corpuscular HGB CONC 33.7 g/dL (32.0-36.0); Mean Corpuscular Hemoglobin 31.1 pg (27.0-31.0); Mean Corpuscular Volume 92.4 fL (78.0-98.0); Mean Platelet Volume 9.8 fL (7.4-10.4); Platelet Count 178 10x3/uL (130-400); RBC Distribution Width 11.9 % (11.5-14.5); Red Blood Cell (RBC) Count 4.47 mill/uL (4.20-5.40)
[2023-11-17 05:41] LABS: Anion Gap 12 mmol/L (10-20); BUN (Urea Nitrogen) 23 mg/dL (9.8-20.1); Calc. Creatinine Clearance 56 mL/min (70-130); Carbon Dioxide 28 mmol/L (23-31); Chloride 104 mmol/L (98-107); Estimated GFR 65; Glucose 87 mg/dL (80-115); Potassium 3.5 mmol/L (3.5-5.1); Sodium 140 mmol/L (136-145)
[2023-11-17 08:00] VITALS: BP 141/83
[2023-11-17] MEDS ORDERED: Heparin 5,000 UNITS/ML VIAL ONE (09:49)
[2023-11-17] MEDS ORDERED: Bupivacaine PF 0.5% 30 ML VIAL ONE (09:50)
[2023-11-17] MEDS ORDERED: Lidocaine 1% MPF 2 ML VIAL ONE (09:56)
[2023-11-17] MEDS ORDERED: Clindamycin/D5W 600 mg/50 ml Premix Bag ONE (10:07)
[2023-11-17] MEDS ORDERED: fentaNYL PF 100 MCG/2 ML SYRINGE ONE (10:30)
[2023-11-17] MEDS ORDERED: Rocuronium Bromide 10 MG/ML (10ML VIAL) ONE (10:30)
[2023-11-17] MEDS ORDERED: PROPOFOL 20 ML ONE (10:30)
[2023-11-17] MEDS ORDERED: ePHEDrine Sulfate 50 MG/10 ML VIAL ONE (10:42)
[2023-11-17] MEDS ORDERED: Dexamethasone 4 mg/ml Vial ONE (11:03)
[2023-11-17] MEDS ORDERED: Ondansetron PF 4 MG/2 ML Vial ONE (11:03)
[2023-11-17] MEDS ORDERED: PHENYLEPHRINE-NS 100 MCG/ML 10 ML SYRINGE ONE (11:03)
[2023-11-17] MEDS ORDERED: Glycopyrrolate 0.2 MG/ML 5 ML SYRINGE ONE (11:09)
[2023-11-17] MEDS ORDERED: NEOSTIGMINE 3 MG/3 ML SYRINGE ONE (11:09)
[2023-11-17] MEDS ORDERED: Protamine Sulfate 50 MG/5 ML VIAL ONE (11:12)
[2023-11-17] MEDS ORDERED: Clindamycin/D5W 600 MG in Premix 1 BAG IVPB SCH (12:07)
[2023-11-17] MEDS ORDERED: Nitroglycerin 50 MG/250 ML BOT 250 ML IVPB PRN (12:07)
[2023-11-17] MEDS ORDERED: Ipratropium/Albuterol 3 ML NEB NEB PRN (12:07)
[2023-11-17] MEDS ORDERED: Ondansetron PF 4 MG/2 ML Vial IVP PRN (12:07)
[2023-11-17] MEDS ORDERED: fentaNYL 50 mcg/mL 1 mL Vial SLOW IVP PRN (12:07)
[2023-11-17] MEDS ORDERED: traMADol HCl 50 MG TAB PO PRN (12:07)
[2023-11-17] MEDS ORDERED: Acetaminophen 325 MG TAB PO PRN (12:07)
[2023-11-17] MEDS ORDERED: hydrALAZINE 20 MG/ML VIAL SLOW IVP PRN (12:07)
[2023-11-17] MEDS ORDERED: Phenylephrine 40 MG in Sodium Chloride 0.9% 250 ML 250 ML IVPB PRN (12:07)
[2023-11-17] MEDS ORDERED: Nitroglycerin 50 MG/250 ML BOT 250 ML ONE (12:12)
[2023-11-17] MEDS: Sodium Chloride 0.9% 1,000 ML IV SCH (14:17)
[2023-11-17] MEDS: Ipratropium/Albuterol 3 ML NEB NEB SCH (14:21)
[2023-11-17] MEDS: Clindamycin/D5W 600 MG in Premix 1 BAG IVPB SCH (15:06)
[2023-11-18 06:11] VITALS: BMI 23.6
[2023-11-18 13:03] VITALS: TEMP 97.8
== END 2023-11-18 14:25 | disposition home or self-care (01) | DRG 35 ==
LOC: ERS 17:22 → 2SE 20:26 → OBSVTOIN 11-13 14:13 → CCU 11-17 12:49
PROVIDERS: ADMIT Student in an Organized Health Care Education/Training Program; ATTEND Internal Medicine
PROC: 037J0DZ Dilation of Left Common Carotid Artery with Intraluminal Device, Open Approach (ICD-10-PCS; principal; 2023-11-17)
PROC: B310ZZZ Fluoroscopy of Thoracic Aorta (ICD-10-PCS; 2023-11-17)
PROC: B314ZZZ Fluoroscopy of Left Common Carotid Artery (ICD-10-PCS; 2023-11-17)
DX: I63.22 Cerebral infarction due to unspecified occlusion or stenosis of basilar artery (principal); G81.91 Hemiplegia, unspecified affecting right dominant side; F17.210 Nicotine dependence, cigarettes, uncomplicated; R47.1 Dysarthria and anarthria; E78.5 Hyperlipidemia, unspecified; I65.22 Occlusion and stenosis of left carotid artery; I10 Essential (primary) hypertension; R29.702 NIHSS score 2; Z88.2 Allergy status to sulfonamides; Z88.0 Allergy status to penicillin; Z79.899 Other long term (current) drug therapy; Z71.6 Tobacco abuse counseling
CPT/HCPCS: 36415; 70450; 70496; 70498; 70551; 71045; 80048; 80053; 80061; 82550; 83036; 83735; 83880; 84484; 85025; 85610; 85730; 86850; 86900; 86901; 93005; 93306; 94640; 94760; 96372; 96374; C1876; C1894; G0378; J0665; J1100; J1642; J1644; J1650; J2060; J2405; J2704; J2720; J3490; J7620; Q9967